=== PATIENT | female | born 1990 | race Caucasian/White ===

== ENCOUNTER 2017-07-10 16:11 | Emergency (ER) | payer OTHER ==
[~2017-07-10] VITALS: Ht 170.2 cm; Wt 115.7 kg
[2017-07-10 16:40] VITALS: Ht 170.2 cm; Wt 115.7 kg
[2017-07-10 18:49] VITALS: BP 123/76
== END 2017-07-10 18:49 | disposition home or self-care (01) ==
LOC: ED 16:11
DX: O20.0 Threatened abortion (principal); Z3A.01 Less than 8 weeks gestation of pregnancy; Z88.1 Allergy status to other antibiotic agents
CPT/HCPCS: 36415

== ENCOUNTER 2017-12-23 21:43 | Emergency (ER) | payer OTHER ==
[2017-12-23 23:14] VITALS: BP 142/94
== END 2017-12-23 23:14 | disposition home or self-care (01) ==
LOC: ED 21:43
DX: O36.8130 Decreased fetal movements, third trimester, not applicable or unspecified (principal); O26.891 Other specified pregnancy related conditions, first trimester; M79.676 Pain in unspecified toe(s); Z3A.30 30 weeks gestation of pregnancy